=== PATIENT | female | born 1945 | race Caucasian/White ===

== ENCOUNTER → 2017-09-26 | Outpatient (CLI) | payer OTHER, MEDICARE | LOC: RAD 00:32 | DX: Z12.31 Encounter for screening mammogram for malignant neoplasm of breast (principal) ==

== ENCOUNTER → 2018-06-11 | Outpatient (CLI) | payer OTHER, MEDICARE | LOC: MRI 10:08 | DX: M75.101 Unspecified rotator cuff tear or rupture of right shoulder, not specified as traumatic (principal); M19.011 Primary osteoarthritis, right shoulder; M75.21 Bicipital tendinitis, right shoulder ==

== ENCOUNTER → 2018-09-30 | Outpatient (CLI) | payer OTHER, MEDICARE | LOC: RAD 12:25 | DX: Z12.31 Encounter for screening mammogram for malignant neoplasm of breast (principal); Z90.11 Acquired absence of right breast and nipple ==

== ENCOUNTER → 2018-10-24 | Outpatient (CLI) | payer OTHER, MEDICARE | LOC: MRI 14:21 | DX: M23.307 Other meniscus derangements, unspecified meniscus, left knee (principal); M17.12 Unilateral primary osteoarthritis, left knee; M22.42 Chondromalacia patellae, left knee ==

== ENCOUNTER → 2019-03-16 | Outpatient (CLI) | payer OTHER, MEDICARE | LOC: MRI 11:30 | DX: S46.211A Strain of muscle, fascia and tendon of other parts of biceps, right arm, initial encounter (principal); M75.101 Unspecified rotator cuff tear or rupture of right shoulder, not specified as traumatic; M19.011 Primary osteoarthritis, right shoulder; X58.XXXA Exposure to other specified factors, initial encounter; Y93.89 Activity, other specified; Y92.89 Other specified places as the place of occurrence of the external cause; Y99.8 Other external cause status ==

== ENCOUNTER → 2019-10-01 | Outpatient (CLI) | payer OTHER, MEDICARE | LOC: RAD 12:27 | DX: Z12.31 Encounter for screening mammogram for malignant neoplasm of breast (principal) ==

== ENCOUNTER → 2019-12-03 | Outpatient (CLI) | payer OTHER, MEDICARE | LOC: MRI 10:00 | DX: M19.012 Primary osteoarthritis, left shoulder (principal); M25.712 Osteophyte, left shoulder; M25.412 Effusion, left shoulder ==

== ENCOUNTER → 2020-01-27 | Day surgery (SDC) | payer OTHER, MEDICARE ==
[~2020-01-27] VITALS: Ht 157.5 cm; Wt 61.2 kg
[~2020-01-27] MED LIST: MAGNESIUM250 M1 PO; MOBIC15 MG PO; TRAMADOL 50 MG50 MG PO; VITAMIN D3250 MCG PO
--- NOTE | ~2020-01-27 | O ---
[facility] Anjali Hardy [place] [address] OPERATIVE REPORT Name: DAWSON FOSTER Room #: [place] [facility] [place] [id number] Admission: 01/27/20 Attend Phys: Edmond Hu Discharge: Date of : 45 Report #: [id number] THIS REPORT FOR: cc: Amari Mead MD, Rene P. MD VanDenBerghe, Gregory R. MD ~ CC: Edmond Mead DATE OF SERVICE: 01/27/2020 PREOPERATIVE DIAGNOSES: Left shoulder pain, rotator cuff tear, impingement syndrome. POSTOPERATIVE DIAGNOSES: Left shoulder rotator cuff tear, large, impingement syndrome, intraarticular synovitis with complex labral tear and subacromial bursitis. PROCEDURE PERFORMED: Left shoulder arthroscopy, rotator cuff repair, subacromial decompression, extensive debridement. SURGEON: Edmond Travis MD CHIEF SUPPLY CHAIN OFFICER: None. ANESTHESIA: General preoperative ultrasound-guided interscalene block. FLUIDS: 1500 mL crystalloid. ESTIMATED BLOOD LOSS: Negligible. DESCRIPTION OF PROCEDURE: After proper identification of the patient and operative site in preoperative holding area, the operative site was signed by myself. Prophylactic antibiotics given. The patient elected to receive an ultrasound-guided block after reviewing the risks, benefits, alternatives and potential complications with anesthesia. After a satisfactory block, the patient was brought back to the operative suite after induction of satisfactory general anesthesia. Left shoulder was examined. It was stable throughout a full arc of motion comparable to the preoperative assessment. The patient was carefully positioned in the right lateral decubitus position. [place]o bag and axillary roll were utilized to support the torso. Left shoulder was sterilely prepped and draped in usual manner and placed within 10 pounds of balanced arthroscopic suspension. Posterior portal was established, joint was inflated with an arthroscopic pump set at 40 mmHg. Anterosuperior portal was created using a spinal needle for localization. Examination of the glenohumeral joint [facility] [address] [place] [address] OPERATIVE REPORT Name: DAWSON FOSTER Room #: [place] [facility] [place].#: [id number] Admission: 01/27/20 Attend Phys: Edmond Hu Discharge: Date of : 45 Report #: [id number] revealed intra-articular synovitis and complex labral tearing noted in the anterior-superior, posterior-superior, and posterior-inferior quadrants. Frayed labrum was carefully debrided. Synovitis was debrided as well. There was evidence of a full thickness retracted rotator cuff tear with prominent articular-sided fraying of the rotator cuff of the supraspinatus and infraspinatus. There was also an upper border tear of the subscapularis. Long head of biceps tendon was stable, within its groove. It was stable on its attachment to the superior labrum and no obvious groove pathology was noted when it was brought into the joint. A separate anteroinferior portal was created and the upper border of the subscapularis was easily reduced to the tuberosity. Tuberosity was prepared with combination of hand and motorized instrumentation and then a FiberTape was placed through the upper rolled border and secured with an Arthrex 4.75 mm SwiveLock anchor. It had good purchase, was stable to probing following the repair. The glenohumeral joint demonstrated some mild chondral thinning, but was otherwise intact. Again, a full thickness tear of the supraspinatus and infraspinatus was noted. The arthroscope was introduced in the subacromial space. Very thickened bursa was encountered. It was resected for visualization purposes. There was fraying on the undersurface of the coracoacromial arch and the CA ligament was released, but not resected off the anterolateral acromion. Prominence to the acromion was removed with a motorized bur and approximately 3 mm of bone was resected here. There was also evidence of a full thickness rotator cuff tear that was minimally retracted. The patient had advanced tendinopathy and fraying of the tendon that was still amenable to repair. Through a separate portal after lateral border of the acromion, a triple-loaded 4.75 mm SwiveLock anchor was inserted. Suture limbs were passed in a horizontal mattress fashion and the FiberTape that was also placed within this. It was passed more centrally in a horizontal mattress fashion. The suture pairs anterior and posterior to the FiberTape were tied first and then all 3 suture pairs were placed in a lateral row anchor creating a double row construct. Care was taken to take all the slack out of the sutures and that these were appropriately tensioned with the second more laterally based anchor insertion. It had good purchase. Repair construct was stable to probing. Subacromial space thoroughly irrigated with normal saline. Portals closed with simple nylon stitch. Sterile dressing was applied. The patient will be placed in a sling and abduction pillow with external rotation limited to neutral for the first 4 weeks. Sling will be utilized for 6 weeks total. By: [id number] Edmond Travis MD /florentin
[2020-01-27 13:40] VITALS: BP 188/67
--- NOTE | 2020-01-27 15:47 | EKG ---
[facility] [place] [address] ELECTROCARDIOGRAM REPORT Name: KRISTINDAWSON LUCIA Room #: [place] [facility] [place] [id number] Admission: 01/27/20 Attend Phys: Edmond Hu Discharge: Date of : 45 Report #: [id number] THIS REPORT FOR: cc: Amari Mead MD, Rene P. MD Couchonnal, Luis F. MD ~ THIS REPORT FOR: //name// [facility] Test Date: 2020-01-27 Test Time: 14:02:44 Pat Name: DAWSON FOSTER Department: Room: Gender: F [employer] Repairer: Annamarie ARCHIBALD : 1945 Requested By: Edmond Travis Order Number: [id number] MD: Carlos Alberto Maria Measurements Intervals [place] Rate: 71 P: 42 NH: 173 QRS: 19 QRSD: 93 T: 10 QT: 386 QTc: 420 Interpretive Statements Sinus rhythm Consider left atrial enlargement Borderline T wave abnormalities Baseline wander in lead(s) V2 Compared to ECG 08/16/2008 10:15:55 T-wave abnormality now present Sinus bradycardia no longer present Electronically Signed On 01-27-2020 15:46:59 CDT by Carlos Alberto Maria [email or web address] <ELECTRONICALLY SIGNED> By: Carlos Alberto Maria MD 01/27/20 1546 140 140 Carlos Alberto Maria MD /EPI
== END | disposition home or self-care (01) ==
LOC: LAB 01-22 10:40 → EDSTATUS 01-22 16:38 → OR 01-22 16:40
PROVIDERS: ATTEND Orthopaedic Surgery Sports Medicine
DX: M25.512 Pain in left shoulder (principal); M75.102 Unspecified rotator cuff tear or rupture of left shoulder, not specified as traumatic; S43.402A Unspecified sprain of left shoulder joint, initial encounter; M75.42 Impingement syndrome of left shoulder; M65.812 Other synovitis and tenosynovitis, left shoulder; M75.52 Bursitis of left shoulder; Z98.890 Other specified postprocedural states; Z11.59 Encounter for screening for other viral diseases; Z98.41 Cataract extraction status, right eye; X58.XXXA Exposure to other specified factors, initial encounter; Y93.89 Activity, other specified; Y92.89 Other specified places as the place of occurrence of the external cause; Y99.8 Other external cause status
CPT/HCPCS: 29827; 29823; 29826; C1713; 50010; 50101; 50172; 50386; 50417; 50935; 50950; 51038; 51320; 51847; 52001; 52313; 53610; 54170; 56527; 57103; 57417; 57420; 58107; 62110; 62900; 64039; 70005

== ENCOUNTER → 2020-10-04 | Outpatient (CLI) | payer OTHER, MEDICARE | LOC: BC 10:52 | PROVIDERS: ATTEND Family Medicine | DX: Z12.31 Encounter for screening mammogram for malignant neoplasm of breast (principal) ==